=== PATIENT | female | born 1955 | race Caucasian/White ===

== ENCOUNTER 2018-08-20 13:41 | Emergency (ER) | payer SELFPAY ==
--- NOTE | 2018-08-20 17:49 | ULT ---
Left lower extremity venous Doppler ultrasound 08/20/2018 COMPARISON: None HISTORY: Pain, numbness TECHNIQUE: Multiplanar grayscale sonographic imaging venous structures left lower extremity obtained with color flow and spectral analysis FINDINGS: Left common femoral vein, greater saphenous vein, profunda femoral vein, femoral vein, popl iteal vein, and posterior tibial vein are patent. Normal blood flow, augmentation, and compression within the deep venous system. No evidence for DVT. IMPRESSION: No evidence for deep venous thrombosis of the left lower extremity.
--- NOTE | 2018-08-20 17:56 | RAD ---
4 views left knee: 08/20/2018 COMPARISON: None HISTORY: Left leg pain FINDINGS: There is a medial hemiarthroplasty with no evidence for hardware failure. There is osteophy te formation of the lateral tibial plateau and the lateral femoral condyle. There is patellofemoral joint space narrowing with posterior patellar osteophyte formation. No acute fracture or dislocation. No knee joint effusion. IMPRESSION: Postoperative and degenerative changes of the left knee as detailed above.
== END 2018-08-20 18:16 | disposition home or self-care (01) ==
LOC: ERS 13:41
DX: M25.562 Pain in left knee (principal); I10 Essential (primary) hypertension; F32.9 Major depressive disorder, single episode, unspecified; F41.9 Anxiety disorder, unspecified

== ENCOUNTER 2018-08-21 08:32 | Emergency (ER) | payer SELFPAY ==
[2018-08-21] MEDS ORDERED: Ketorolac Tromethamine 30 MG/ML VIAL ONE (10:05)
== END 2018-08-21 10:51 | disposition home or self-care (01) ==
LOC: ERS 08:32
DX: M25.562 Pain in left knee (principal)
CPT/HCPCS: 96372; J1885